=== PATIENT | male | born 1955 | race Caucasian/White ===

== ENCOUNTER 2020-10-17 05:23 | Day surgery (SDC) | payer MEDICARE, BC ==
[2020-10-10 15:50] LABS: BASOPHILS # (AUTO) 0.1 X10'3 (0-0.2); BASOPHILS % (AUTO) 0.9 % (0-1); EOSINOPHILS # (AUTO) 0.2 X10'3 (0-0.9); EOSINOPHILS % (AUTO) 3.7 % (0-6); LYMPHOCYTES # (AUTO) 1.6 X10'3 (1.1-4.8); LYMPHOCYTES % (AUTO) 24.6 % (21-51); MEAN CORPUSCULAR HEMOGLOBIN 30.4 PG (27.0-31.0); MEAN CORPUSCULAR HGB CONC 34.3 g/dL (33.0-36.5); MEAN CORPUSCULAR VOLUME 88.9 FL (78-98); MEAN PLATELET VOLUME 8.4 FL (7.4-10.4); MONOCYTES # (AUTO) 0.5 X10'3 (0-0.9); MONOCYTES % (AUTO) 7.6 % (2-12); NEUTROPHILS % (AUTO) 63.2 % (42-75); PRE OP HEMATOCRIT 45.4 % (42.0-52.0); PRE OP HEMOGLOBIN 15.5 g/dL (14.0-17.9); PRE OP PLATELET COUNT 255 X10'3 (140-440); RED CELL DISTRIBUTION WIDTH 13.3 % (11.5-14.5)
[2020-10-10 15:56] LABS: PRE OP PROTIME 10.8 SECONDS (9.0-12.0)
[2020-10-10 16:00] LABS: ALBUMIN 4.1 G/DL (3.4-5.0); ALBUMIN/GLOBULIN RATIO 1.3 (1.1-1.5); ALKALINE PHOSPHATASE 103 IU/L (46-116); BLOOD UREA NITROGEN 22 MG/DL (7-18); BUN/CREATININE RATIO 21.8 (5.4-32.0); CHLORIDE 106 MMOL/L (99-107); CREATININE 1.01 MG/DL (0.60-1.10); PRE OP ALT 40 U/L (30-65); PRE OP ANION GAP 8 (8-16); PRE OP AST 20 U/L (10-37); PRE OP BILIRUB, TOTAL 0.6 MG/DL (0.0-1.0); PRE OP GLUCOSE 94 MG/DL (70-104); PRE OP POTASSIUM 4.4 MMOL/L (3.4-5.1); PRE OP SODIUM 142 MMOL/L (135-145); TOTAL PROTEIN 7.2 G/DL (6.4-8.2); eGFR 74 ML/MIN
[~2020-10-17] VITALS: Ht 167.6 cm; Wt 68.0 kg
[2020-10-17] VITALS (9 sets, daily range): BP systolic 101–128; BP diastolic 53–83
[~2020-10-17 05:23] MED LIST: NO HOME MEDS
[2020-10-17] MEDS ORDERED: acetaminophen 325mg tablet PO ONE (05:30)
[2020-10-17] MEDS ORDERED: ceFAZolin 2gm in dextrose, iso 50 ML IV ONE (05:30)
[2020-10-17] MEDS ORDERED: celeCOXIB 100mg capsule PO ONE (05:30)
[2020-10-17] MEDS ORDERED: vancomycin 1,500 MG in NS 300ml IV soln IV ONE (05:30)
[2020-10-17] MEDS ORDERED: gabapentin 300mg capsule PO ONE (05:30)
[2020-10-17] MEDS ORDERED: metoclopramide 5 mg/ml inj IV ONE (05:30)
[2020-10-17] MEDS ORDERED: famotidine 20mg tablet PO ONE (05:30)
[2020-10-17] MEDS ORDERED: oxyCODONE SR 10mg (sust. release) tab -2 tabs (20mg) PO ONE (05:30)
[2020-10-17] MEDS ORDERED: tranexamic acid 1gm/0.7% sal. 100 ML IV ONE (05:30)
[2020-10-17] MEDS ORDERED: LIDOcaine 1% (10mg/ml) 2ml vial ONE (05:58)
[2020-10-17] MEDS: ringers solution, lacted 1,000 ML IV SCH ×2 (06:13→11:47)
[2020-10-17] MEDS ORDERED: HYDROcodone/acetaminophen 10/325mg tab PO PRN ×2 (06:45)
[2020-10-17] MEDS ORDERED: diphenhydrAMINE 25mg capsule PO PRN ×2 (06:45)
[2020-10-17] MEDS ORDERED: magnesium hydroxide 30ml (MOM) UD suspension PO PRN (06:45)
[2020-10-17] MEDS ORDERED: HYDROmorphone 1 mg/ml syringe IV PRN (06:45)
[2020-10-17] MEDS ORDERED: HYDROmorphone inj. 0.5 MG/0.5 ML DISP.SYRIN IV PRN (06:45)
[2020-10-17] MEDS ORDERED: bisacodyl 10mg suppository rectal RC PRN (06:45)
[2020-10-17] MEDS ORDERED: acetaminophen 325mg tablet PO PRN (06:45)
[2020-10-17] MEDS ORDERED: ondansetron/PF 4mg/2ml inj IV PRN ×2 (06:45→09:25)
[2020-10-17] MEDS ORDERED: vancomycin 1,000mg inj ONE (07:24)
[2020-10-17] MEDS ORDERED: ROPIVAcaine inj 250 MG, ketorolac tromethamine inj. 15 MG, CloNIDine/PF inj 80 MCG, epi... IU ONE ×5 (07:29)
[2020-10-17] MEDS ORDERED: fentaNYL/PF 50MCG/1 ML 2ML syringe ONE (08:17)
[2020-10-17] MEDS ORDERED: morphine 2 MG/ML inj. syringe IV PRN (09:25)
[2020-10-17] MEDS ORDERED: meperidine/PF 25mg/ml syringe IV PRN ×3 (09:25)
[2020-10-17] MEDS ORDERED: proCHLORperazine 10 MG/2 ml inj IV PRN (09:25)
[2020-10-17] MEDS ORDERED: morphine 4 MG/ML inj SYRINge IV PRN (09:25)
[2020-10-17] MEDS ORDERED: ringers solution, lacted 1,000 ML IV SCH (09:25)
[2020-10-17] MEDS ORDERED: acetaminophen 1,000mg/100ml IV 100 ML IV PRN (09:25)
[2020-10-17] MEDS ORDERED: ePHEDrine 50MG/ML INJ. ONE (09:29)
[2020-10-17] MEDS ORDERED: MIDAZolam 5mg/5ml vial ONE (09:29)
--- NOTE | 2020-10-17 09:37 | NUR ---
Received from OR via SURGICAL BED , accompanied by Anesthesiologist ABDOUL and report given by Anesthesiolgist. PATIENT WITH 18G PIV IN RIGHT FOREARM RUNNING LR AT 100. PATIENT DENIES PAIN. SENSATION LEVEL AT L1 CURRENTLY FROM SPINAL ANESTHESIA. LEFT HIP CLAUDIA VAC IS INTACT. + DP TO LLE. IMMOBILIZER ON. DENIES PAIN Addendum: 10/17/20 at 2061 by Louis Godwin RN, RN Amended: Links added.
[2020-10-17] MEDS ORDERED: tranexamic acid inj. 680 MG in normal saline 100ml IV soln 100 ML IV ONE ×2 (09:45→13:00)
--- NOTE | 2020-10-17 10:30 | NUR ---
Patient in room . I have received report from Louis GREENFIELD and had the opportunity to ask questions and awaiting patients arrival
--- NOTE | 2020-10-17 10:37 | NUR ---
PATIENT TAKEN TO WITH ALL BELONGINGS AND HOOKED UP TO MONITORS IN ROOM AND REPORT GIVEN TO RN WHO HAS TAKEN OVER PATIENT CARE. GIN RAMOS PRESENT TO ASSESS AND SET PATIENT UP. VSS. DENIES PAIN. SPINAL SENSATION STILL AT L1. ONE BAG OF BELONGING SENT WITH PATIENT. PATIENT BED LOW, CALL LIGHT PRESENT. 2 RAILS UP. SCDS ON. CARE ASSUMED BY GIN RAMOS. Addendum: 10/17/20 at 1051 by Louis Nuñez - GIN GREENFIELD Amended: Links added.
[2020-10-17] MEDS: potassium cl 20mEq in 1/2 NS 1,000 ML IV SCH ×2 (12:46→14:45)
[2020-10-17] MEDS ORDERED: ceFAZolin 2gm in dextrose, iso 50 ML IV SCH (16:00)
--- NOTE | 2020-10-17 18:20 | NUR ---
Patient in knee imobolizer medicated for pain x1. Able to void . All cares given. patient seen by PT who recommended ok to DC home. Dr julien pageanastacio and agreed.DC order placed. Alberto in place. surgical incision CDI. Dorsal pulses palpable . Patient DC home via private car with with spouse and all DC instuctions. 1730hrs.
[2020-10-17] MEDS ORDERED: vancomycin/NS 1 GM ADD-VANTAGE 250 ML IV SCH (20:00)
[2020-10-17] MEDS ORDERED: ascorbic acid 500mg tablet PO SCH (20:00)
[2020-10-17] MEDS ORDERED: sennosides 8.6mg tablet PO SCH (21:00)
[2020-10-17] MEDS ORDERED: gabapentin 300mg capsule PO SCH (21:00)
[2020-10-18] MEDS ORDERED: multivitamins, therapeutics tablet PO SCH (08:00)
[2020-10-18] MEDS ORDERED: aspirin 325mg tablet PO SCH (08:30)
[2020-10-18] MEDS ORDERED: celeCOXIB 100mg capsule PO SCH (20:00)
== END 2020-10-17 17:45 | disposition home or self-care (01) ==
LOC: PAS 05:23 → SUR 3N 06:45 → PAS 17:45
PROVIDERS: ATTEND Orthopaedic Surgery
DX: M16.12 Unilateral primary osteoarthritis, left hip (principal); Z20.828 Contact with and (suspected) exposure to other viral communicable diseases; Z79.899 Other long term (current) drug therapy; Z79.01 Long term (current) use of anticoagulants; Z79.82 Long term (current) use of aspirin
CPT/HCPCS: 27130; 36415; 72170; 80053; 82948; 85025; 85610; 85730; 86885; 86900; 86901; 87081; 87635; 97110; 97116; 97161; 97530; C1776; J1170; J2001; J2250; J2765; J3010; J3370; J7040; J7120; A7000; G0378; J3480